=== PATIENT | male | born 1990 | race Caucasian/White ===

== ENCOUNTER 2022-12-22 22:20 | Emergency (ER) | payer SELFPAY ==
[~2022-12-22] VITALS: Ht 175.3 cm; Wt 90.7 kg
[2022-12-22 22:20] VITALS: BP 127/78; PULSE 104; RESP 16; TEMP 98; O2SAT 98
[2022-12-22] MEDS ORDERED: ONDANSETRON 4 MG ODT PO ONE (22:40)
[2022-12-23 01:04] VITALS: BP 116/74; PULSE 112; RESP 14; O2SAT 96
== END 2022-12-23 01:37 | disposition left against medical advice (07) ==
LOC: MED 22:20
DX: F10.129 Alcohol abuse with intoxication, unspecified (principal); Y90.9 Presence of alcohol in blood, level not specified
CPT/HCPCS: 36415; 99283; G0482